=== PATIENT | male | born 1985 | race Caucasian/White ===

== ENCOUNTER 2023-05-06 23:36 | Emergency (ER) | payer BC ==
[~2023-05-06 23:36] MED LIST: Iopamidol 370 76% 100 ML VIAL ONE
[2023-05-07] MEDS ORDERED: Sodium Chloride 0.9% 2,000 ML ONE (00:07)
[2023-05-07] MEDS ORDERED: Ondansetron PF 4 MG/2 ML Vial ONE (00:07)
[2023-05-07 00:30] LABS: Eosinophils 1 % (0-10); Hemoglobin 16.9 g/dL (14.0-18.0); Lymphocytes 13 % (21-51); MDiff Complete? YES; Mean Corpuscular HGB CONC 33.8 g/dL (32.0-36.0); Mean Corpuscular Volume 91.6 fl (78.0-98.0); Mean Platelet Volume 6.7 fL (7.4-10.4); Monocytes 18 % (0-10); Neutrophil 68 % (42-75); Platelet Count 378 10x3/uL (130-400); RBC Distribution Width 12.8 % (11.5-14.5); Red Blood Cell (RBC) Count 5.44 mill/uL (4.70-6.10)
[2023-05-07 00:34] LABS: ALT (SGPT) 85 U/L (8-55); AST (SGOT) 35 U/L (5-34); Alkaline Phosphatase 97 U/L (40-110); Anion Gap 18 mmol/L (10-20); BUN (Urea Nitrogen) 10 mg/dL (8.9-20.6); Calc. Creatinine Clearance 0 mL/min (70-130); Calcium 9.2 mg/dL (7.8-10.44); Carbon Dioxide 22 mmol/L (22-29); Chloride 101 mmol/L (98-107); Estimated GFR 92; Globulin 2.7 g/dL (2.4-3.5); Glucose 105 mg/dL (70-105); Lipase 8 U/L (8-78); Potassium 3.4 mmol/L (3.5-5.1); Protein, Total 6.7 g/dL (6.0-8.3); Sodium 138 mmol/L (136-145)
[2023-05-07] MEDS ORDERED: Sodium Chloride 0.9% 1,000 ML ONE (01:39)
[2023-05-07] MEDS ORDERED: D5 1/2 NS w/20 mEq KCL 1,000 ML ONE (02:46)
== END 2023-05-07 03:11 | disposition short-term general hospital (02) ==
LOC: MADERS 23:36
DX: K56.609 Unspecified intestinal obstruction, unspecified as to partial versus complete obstruction (principal); E86.0 Dehydration; E87.6 Hypokalemia; F17.210 Nicotine dependence, cigarettes, uncomplicated
CPT/HCPCS: 74177; 80053; 82248; 83605; 83690; 83735; 85025; 96361; 96365; 96375; J2405; J3480; J7042; J7050; Q9967